=== PATIENT | male | born 1965 | race Caucasian/White ===

== ENCOUNTER 2019-12-02 10:48 | Emergency (ER) | payer OTHER, BC ==
[~2019-12-02] VITALS: Ht 172.7 cm; Wt 83.9 kg
[~2019-12-02 10:48] MED LIST: DALF10TA PO; GLAT40SY SQ; PRED10TA PO
[2019-12-02 11:12] VITALS: BP_SYST 115
--- NOTE | 2019-12-02 11:21 | NUR ---
Patient triaged and placed in waiting room. VSS and patient appears in no acute distress at this time. Accompanied by FAMILY, awaiting available bed, and MD notified of need for MSE.
[2019-12-02 12:17] LABS: BASOPHILS % (AUTO) 0.4 % (0.0-2.0); EOSINOPHILS # (AUTO) 0.1 K/uL (0.0-0.4); EOSINOPHILS % (AUTO) 0.8 % (0.0-4.0); HEMOGLOBIN 15.5 g/dL (14.0-18.0); LYMPHOCYTES # (AUTO) 1.8 K/uL (1.0-5.5); LYMPHOCYTES % (AUTO) 22.8 % (20.5-51.5); MEAN CORPUSCULAR HEMOGLOBIN 32 pg (27-31); MEAN CORPUSCULAR HGB CONC 34 % (32-36); MEAN CORPUSCULAR VOLUME 92 fL (79.0-98.0); MONOCYTES # (AUTO) 0.7 K/uL (0.0-1.0); MONOCYTES % (AUTO) 9.3 % (1.7-9.3); NEUTROPHILS # (AUTO) 5.4 K/uL (1.8-7.7); NEUTROPHILS % (AUTO) 66.7 % (40.0-70.0); PLATELET COUNT (AUTO) 298 K/uL (130-430); RED CELL DISTRIBUTION WIDTH 13.3 % (9.0-15.0); WHITE BLOOD COUNT (AUTO) 8.1 K/uL (4.8-10.8)
[2019-12-02 12:33] LABS: CALCIUM 9.2 mg/dL (8.4-11.0); CREATININE 1.06 mg/dL (0.55-1.30); POTASSIUM 4.2 mmol/L (3.5-5.1)
[2019-12-02 12:48] LABS: ALBUMIN 4.1 g/dL (3.4-4.8)
--- NOTE | 2019-12-02 12:49 | NUR ---
Patient to ER bed 08 for evaluation. Side rails up.
--- NOTE | 2019-12-02 12:55 | NUR ---
Pt brought by caregiver, A&Ox3, pt presents to ER with redness/ discharge on bilateral legs and bristering on L leg, pt is bedridden with Hx of MS, afebrile, skin pink and warm, cap refill <3, VSS.
--- NOTE | 2019-12-02 13:00 | NUR ---
Tameka Quevedo [employer] INSPECTOR at bedside examining patient
--- NOTE | 2019-12-02 13:22 | NUR ---
report received from Merary BLUM
--- NOTE | 2019-12-02 14:45 | NUR ---
urine sample collected and sent to the lab.
--- NOTE | 2019-12-02 15:00 | NUR ---
care endorsed to Merary BLUM
[2019-12-02 15:04] LABS: BILIRUBIN,URINE NEGATIVE (NEGATIVE); BLOOD, URINE NEGATIVE (NEGATIVE); CLARITY/URINE CLEAR (CLEAR); COLOR,URINE YELLOW (YELLOW); GLUCOSE,URINE NEGATIVE (NEGATIVE); KETONES,URINE NEGATIVE (NEGATIVE); LEUKOCYTE ESTERASE ,URINE 1+ (NEGATIVE); NITRITE, URINE POSITIVE (NEGATIVE); PROTEIN URINE NEGATIVE (NEGATIVE); UROBILINOGEN,URINE 0.2 (0.2-1.0)
[2019-12-02 15:27] LABS: BACTERIA,URINE FEW /HPF (None Seen); RBC,URINE 0-3 /HPF (0-3)
[2019-12-02] MEDS ORDERED: cefTRIAXone 1 GM in D5W 50 ML IV ONE (16:00)
[2019-12-02] MEDS ORDERED: cefTRIAXone 1 GM IVPB PREMIX 50 ML IV ONE (16:26)
[2019-12-02] MEDS ORDERED: HYDROcodone/ACETAMIN 5-325 MG TAB (NORCO/ VICODIN) PO ONE (16:30)
[2019-12-02 16:44] VITALS: BP_SYST 121
--- NOTE | 2019-12-02 16:44 | NUR ---
Patient given written and verbal discharge instructions and verbalizes understanding. ER [employer]ER Tameka Quevedo discussed with patient the results and treatment provided. Patient in stable condition. ID arm band removed. Rx of Tylenol, Hargill, Bactrim, and Keflex given. Patient educated on pain management and to follow up with PMD. Pain Scale 4/10. Opportunity for questions provided and answered. Medication side effect fact sheet provided.
== END 2019-12-02 16:44 | disposition home or self-care (01) ==
LOC: SED 10:48
DX: L03.115 Cellulitis of right lower limb (principal); L03.116 Cellulitis of left lower limb; N39.0 Urinary tract infection, site not specified; G35 Multiple sclerosis; Z88.8 Allergy status to other drugs, medicaments and biological substances
CPT/HCPCS: 36415; 71045; 80053; 81000; 83605; 83880; 85025; 87040; 87086; 93970; 99284; J0696; 87186-TC